=== PATIENT | female | born 1995 | race Caucasian/White ===

== ENCOUNTER 2022-09-01 11:58 | Emergency (ER) | payer OTHER ==
[~2022-09-01] VITALS: Ht 152.4 cm; Wt 77.3 kg
[~2022-09-01 11:58] MED LIST: ALBU17AE27 IH
[2022-09-01 13:53] LABS: APPEARANCE,URINE CLEAR (CLEAR); BILIRUBIN,URINE NEGATIVE (NEGATIVE); GLUCOSE, URINE (UA) NEGATIVE (NEGATIVE); KETONES,URINE NEGATIVE (NEGATIVE); LEUKOCYTE ESTERASE ,URINE NEGATIVE (NEGATIVE); NITRATE,URINE NEGATIVE (NEGATIVE); OCCULT BLOOD,URINE NEGATIVE (NEGATIVE); PH,URINE 7.5 (5.0-8.0); PROTEIN,URINE NEGATIVE (NEGATIVE); SPECIFIC GRAVITIY, URINE 1.027 (1.003-1.030); UROBILINOGEN,URINE <=1.0 mg/dL (<=1.0)
[2022-09-01] MEDS ORDERED: OFLO5DRO21 AD (14:22)
[2022-09-01 14:41] VITALS: BP 130/82
== END 2022-09-01 14:43 | disposition home or self-care (01) ==
LOC: EMS 12:16
DX: S09.22XA Traumatic rupture of left ear drum, initial encounter (principal); S09.90XA Unspecified injury of head, initial encounter; H11.33 Conjunctival hemorrhage, bilateral; J45.909 Unspecified asthma, uncomplicated; R42 Dizziness and giddiness; W21.06XA Struck by volleyball, initial encounter; Y93.68 Activity, volleyball (beach) (court); Y92.89 Other specified places as the place of occurrence of the external cause; Y99.8 Other external cause status
CPT/HCPCS: 70450; 72125; 81003; 84703; 99284

== ENCOUNTER 2023-11-08 21:11 | Emergency (ER) | payer OTHER ==
[~2023-11-08] VITALS: Ht 149.9 cm; Wt 85.0 kg
[~2023-11-08 21:11] MED LIST changes: +OFLO5DRO4 AD
[2023-11-08] MEDS ORDERED: TraMADol HCL 50 MG TABLET PO ONE (22:30)
[2023-11-08] MEDS ORDERED: LIDOCAINE 1% 10 ML VIAL SQ ONE (22:45)
[2023-11-08] MEDS ORDERED: PERTUSS(ACELL),DIPH,TET VAC/PF 0.5 ML SYRINGE IM. ONE (22:45)
[2023-11-08 23:00] VITALS: BP 119/66; PULSE 70; RESP 18; TEMP 97.3
[2023-11-08] MEDS ORDERED: HYDR-4723 PO (23:21)
== END 2023-11-09 02:52 | disposition home or self-care (01) ==
LOC: EMS 21:12
DX: S61.210A Laceration without foreign body of right index finger without damage to nail, initial encounter (principal); J45.909 Unspecified asthma, uncomplicated; Z98.890 Other specified postprocedural states; W26.0XXA Contact with knife, initial encounter; Y93.89 Activity, other specified; Y92.89 Other specified places as the place of occurrence of the external cause; Y99.8 Other external cause status
CPT/HCPCS: 99283; 90715; 90471; 12001; J3490